=== PATIENT | female | born 1955 | race Caucasian/White ===

== ENCOUNTER 2024-07-14 13:52 | Inpatient (IN) | payer MEDICARE, OTHER ==
[~2024-07-14] VITALS: Ht 170.2 cm; Wt 97.5 kg
[2024-07-14 15:33] LABS: BASOPHILS % (AUTO) 0.3 % (0.0-2.0); EOSINOPHILS # (AUTO) 0.1 K/uL (0.0-0.7); EOSINOPHILS % (AUTO) 2.6 % (0.0-6.0); HEMATOCRIT 32 % (33-45); HEMOGLOBIN 10.5 g/dL (11.5-14.8); LYMPHOCYTES # (AUTO) 0.6 K/uL (0.8-4.8); LYMPHOCYTES % (AUTO) 10.6 % (20.0-44.0); MEAN CORPUSCULAR HEMOGLOBIN 31 PG (26.0-33.0); MEAN CORPUSCULAR HGB CONC 33 g/dl (31.0-36.0); MEAN CORPUSCULAR VOLUME 94 fL (82-100); MONOCYTES # (AUTO) 0.2 K/uL (0.1-1.30); MONOCYTES % (AUTO) 4.6 % (2.0-12.0); NEUTROPHILS # (AUTO) 4.2 K/uL (1.8-8.9); NEUTROPHILS % (AUTO) 81.9 % (43.0-81.0); PLATELET COUNT (AUTO) 236 K/uL (150-450); RED BLOOD CELL COUNT(AUTO) 3.38 MIL/uL (4.0-5.2); RED CELL DISTRIBUTION WIDTH 13.2 % (11.5-15.0); WHITE BLOOD COUNT (AUTO) 5.2 K/uL (4.3-11.0)
[2024-07-14 15:48] LABS: CALCIUM, SERUM 8.7 mg/dL (8.5-10.1); CREATININE 2.9 mg/dL (0.6-1.3); POTASSIUM 4.5 mmol/L (3.5-5.1)
[2024-07-14 15:51] LABS: BILIRUBIN,URINE Negative (NEGATIVE); BLOOD, URINE Moderate Ery/uL (NEGATIVE); COLOR,URINE YELLOW (YELLOW); KETONES,URINE Negative (NEGATIVE); LEUKOCYTE ESTERASE ,URINE Large (NEGATIVE); PROTEIN,URINE 30 mg/dl (NEGATIVE); UGLUCOSE Negative (NEGATIVE); UROBILINOGEN,URINE 0.2 EU/dL (0.2)
[2024-07-14 15:54] LABS: APPEARANCE,URINE HAZY (CLEAR); NITRITE, URINE NEGATIVE (NEGATIVE)
[2024-07-14 15:55] LABS: ADD URINE CULTURE YES; BACTERIA,URINE 1+ /HPF (None Seen); WBC,URINE 21-50 /HPF (0-3)
[2024-07-14] MEDS ORDERED: ACET-73 PO (15:57)
[2024-07-14] MEDS ORDERED: FURO40TA5 PO (15:57)
[2024-07-14] MEDS ORDERED: HYDR-3980 PO (15:57)
[2024-07-14] MEDS ORDERED: MAGN400T52 PO (15:57)
[2024-07-14] MEDS ORDERED: TRAZ-252 PO (15:57)
[2024-07-14] MEDS ORDERED: FERR325T24 PO (15:57)
[2024-07-14] MEDS ORDERED: OLME20TA23 PO (15:57)
[2024-07-14] MEDS ORDERED: AZEL137S7 BNOSTRILS (15:57)
[2024-07-14] MEDS ORDERED: BUSP5TAB3 PO (15:57)
[2024-07-14] MEDS ORDERED: HYDROCODONE/APAP 10/325MG TABLET PO PRN (19:00)
[2024-07-14] MEDS ORDERED: ONDANSETRON HCL/PF 4 MG/2 ML VIAL IVP PRN (19:00)
[2024-07-14] MEDS ORDERED: Z GUARD REMEDY 4 OZ OINT TP PRN (19:00)
[2024-07-14] MEDS: ENOXAPARIN SODIUM 40 MG/0.4 ML DISP.SYRIN SQ SCH (19:55)
[2024-07-14 20:00] VITALS: BP 110/57; TEMP 97.7; O2SAT 100
[2024-07-14] MEDS: IV NS 0.9% 1,000 ML IV PRN (20:01)
[2024-07-14] MEDS: MEROPENEM 500 MG in IV NS 0.9% 50 ML IV SCH (20:43)
[2024-07-14] MEDS: MAGNESIUM OXIDE 400 MG TABLET PO SCH (21:09)
[2024-07-14] MEDS: busPIRone 5 MG TABLET PO SCH (21:09)
[2024-07-14] MEDS: TRAZODONE 50 MG TABLET PO SCH (21:09)
[2024-07-15 04:00] VITALS: BP 97/50; TEMP 97.9; O2SAT 98
[2024-07-15] MEDS: PANTOPRAZOLE 40 MG TABLET.DR PO SCH (06:32)
[2024-07-15 06:59] LABS: BASOPHILS % (AUTO) 0.3 % (0.0-2.0); EOSINOPHILS # (AUTO) 0.2 K/uL (0.0-0.7); EOSINOPHILS % (AUTO) 3.7 % (0.0-6.0); HEMATOCRIT 31 % (33-45); HEMOGLOBIN 10.4 g/dL (11.5-14.8); LYMPHOCYTES # (AUTO) 0.7 K/uL (0.8-4.8); LYMPHOCYTES % (AUTO) 17.1 % (20.0-44.0); MEAN CORPUSCULAR HEMOGLOBIN 31 PG (26.0-33.0); MEAN CORPUSCULAR HGB CONC 33 g/dl (31.0-36.0); MEAN CORPUSCULAR VOLUME 92 fL (82-100); MONOCYTES # (AUTO) 0.3 K/uL (0.1-1.30); MONOCYTES % (AUTO) 6.1 % (2.0-12.0); NEUTROPHILS % (AUTO) 72.8 % (43.0-81.0); PLATELET COUNT (AUTO) 246 K/uL (150-450); RED BLOOD CELL COUNT(AUTO) 3.39 MIL/uL (4.0-5.2); RED CELL DISTRIBUTION WIDTH 13.4 % (11.5-15.0); WHITE BLOOD COUNT (AUTO) 4.1 K/uL (4.3-11.0)
[2024-07-15 07:10] LABS: CALCIUM, SERUM 9.1 mg/dL (8.5-10.1); CREATININE 2.6 mg/dL (0.6-1.3)
[2024-07-15 08:00] VITALS: BP 99/51; TEMP 98.1; O2SAT 95
[2024-07-15] MEDS: FERROUS SULFATE (325 MG) 325 MG/TAB TABLET PO SCH (08:19)
[2024-07-15] MEDS ORDERED: LOSARTAN POTASSIUM 50 MG TABLET PO SCH (09:00)
[2024-07-15 12:00] VITALS: BP 101/57; TEMP 98.1; O2SAT 96
[2024-07-15 16:00] VITALS: BP 112/48; TEMP 97.7; O2SAT 96
[2024-07-15 20:00] VITALS: BP 101/56; TEMP 97.7; O2SAT 97
[2024-07-16] MEDS: MAGNESIUM HYDROXIDE 30 ML UDC PO PRN (01:52)
[2024-07-16 04:00] VITALS: BP 96/59; TEMP 98.7; O2SAT 96
[2024-07-16 06:50] LABS: BASOPHILS % (AUTO) 0.2 % (0.0-2.0); EOSINOPHILS # (AUTO) 0.2 K/uL (0.0-0.7); EOSINOPHILS % (AUTO) 3.9 % (0.0-6.0); HEMATOCRIT 32 % (33-45); HEMOGLOBIN 10.7 g/dL (11.5-14.8); LYMPHOCYTES # (AUTO) 0.5 K/uL (0.8-4.8); LYMPHOCYTES % (AUTO) 9.7 % (20.0-44.0); MEAN CORPUSCULAR HEMOGLOBIN 31 PG (26.0-33.0); MEAN CORPUSCULAR HGB CONC 34 g/dl (31.0-36.0); MEAN CORPUSCULAR VOLUME 92 fL (82-100); MONOCYTES # (AUTO) 0.3 K/uL (0.1-1.30); MONOCYTES % (AUTO) 5.6 % (2.0-12.0); NEUTROPHILS # (AUTO) 3.8 K/uL (1.8-8.9); NEUTROPHILS % (AUTO) 80.6 % (43.0-81.0); PLATELET COUNT (AUTO) 252 K/uL (150-450); RED BLOOD CELL COUNT(AUTO) 3.46 MIL/uL (4.0-5.2); RED CELL DISTRIBUTION WIDTH 13.3 % (11.5-15.0); WHITE BLOOD COUNT (AUTO) 4.7 K/uL (4.3-11.0)
[2024-07-16 07:01] LABS: ALBUMIN 2.7 g/dL (3.4-5.0); BILIRUBIN,TOTAL 0.2 mg/dL (0.2-1.0); CALCIUM, SERUM 9.4 mg/dL (8.5-10.1); CREATININE 2.2 mg/dL (0.6-1.3); MAGNESIUM 3.2 mg/dL (1.8-2.4); PHOSPHORUS 3.9 mg/dL (2.5-4.9); POTASSIUM 4.3 mmol/L (3.5-5.1); TOTAL PROTEIN, SERUM 6.6 g/dL (6.4-8.2)
[2024-07-16 12:00] VITALS: BP 110/48; TEMP 98; O2SAT 96
[2024-07-16] MEDS ORDERED: METH1TAB69 PO (12:33)
[2024-07-16] MEDS ORDERED: FURO-144 PO (12:33)
[2024-07-16] MEDS ORDERED: SULF1TAB48 PO (12:33)
[2024-07-16] MEDS: ACETAMINOPHEN 325 MG TABLET PO PRN (15:42)
[2024-07-16 16:41] VITALS: TEMP 98
[2024-07-17 08:07] LABS: PTH, INTACT 27 pg/mL (15-65)
[2024-07-17 13:12] LABS: *SPE ALBUMIN 2.9 g/dL (2.9-4.4); *SPE ALPHA-1-GLOBULIN 0.3 g/dL (0.0-0.4); *SPE ALPHA-2-GLOBULIN 0.8 g/dL (0.4-1.0); *SPE BETA GLOBULIN 0.8 g/dL (0.7-1.3); *SPE GLOBULIN, TOTAL 2.9 g/dL (2.2-3.9); *SPE M-SPIKE Not Observed g/dL (Not Observed); *SPE PROTEIN TOTAL 5.8 g/dL (6.0-8.5); *SPEGAMMA GLOBULIN 0.9 g/dL (0.4-1.8)
== END 2024-07-16 19:00 | disposition home health service (06) | DRG 683 ==
LOC: ER 13:55 → MEDSG1 18:15
PROVIDERS: ADMIT Nurse Practitioner Acute Care; ATTEND Nurse Practitioner Acute Care
DX: N17.9 Acute kidney failure, unspecified (principal); I13.0 Hypertensive heart and chronic kidney disease with heart failure and stage 1 through stage 4 chronic kidney disease, or unspecified chronic kidney disease; I50.32 Chronic diastolic (congestive) heart failure; N39.0 Urinary tract infection, site not specified; Z87.440 Personal history of urinary (tract) infections; N18.9 Chronic kidney disease, unspecified; E83.41 Hypermagnesemia; F32.A Depression, unspecified; D63.8 Anemia in other chronic diseases classified elsewhere; N26.1 Atrophy of kidney (terminal); M89.8X9 Other specified disorders of bone, unspecified site; E83.9 Disorder of mineral metabolism, unspecified; R53.1 Weakness; F41.9 Anxiety disorder, unspecified; R23.4 Changes in skin texture; S81.811A Laceration without foreign body, right lower leg, initial encounter; X58.XXXA Exposure to other specified factors, initial encounter; Y93.9 Activity, unspecified; Y92.89 Other specified places as the place of occurrence of the external cause
CPT/HCPCS: 36415; 76770-TC; 80048-TC; 80053-TC; 80061-TC; 81001; 82550-TC; 83735-TC; 83970; 84100-TC; 84155; 84165; 85025-TC; 93307-TC; A4223; G0378; J1650; J2185; J7030

== ENCOUNTER 2024-08-17 17:05 | Emergency (ER) | payer MEDICARE, OTHER ==
[~2024-08-17] VITALS: Ht 170.2 cm; Wt 95.7 kg
[~2024-08-17 17:05] MED LIST: ACET-73 PO; AZEL137S7 BNOSTRILS; BUSP5TAB3 PO; FERR325T24 PO; FURO-144 PO; HYDR-3980 PO; MAGN400T52 PO; METH1TAB69 PO; OLME20TA23 PO; SULF1TAB48 PO; TRAZ-252 PO
[2024-08-17] MEDS ORDERED: ACET325T53 PO (19:08)
[2024-08-17] MEDS ORDERED: OMEG1CAP40 PO (19:08)
[2024-08-17] MEDS ORDERED: FURO40TA5 PO (19:08)
[2024-08-17] MEDS ORDERED: VALA500T40 PO (19:08)
[2024-08-17] MEDS ORDERED: NALO4SPR NS (19:08)
[2024-08-17] MEDS ORDERED: MAGN400O6 PO (19:08)
[2024-08-17] MEDS ORDERED: METH1TAB69 PO (19:08)
[2024-08-17] MEDS ORDERED: ASCO500T10 PO (19:08)
[2024-08-17 19:56] LABS: APPEARANCE,URINE CLEAR (CLEAR); BILIRUBIN,URINE NEGATIVE (NEGATIVE); BLOOD, URINE 2+ Ery/uL (NEGATIVE); COLOR,URINE YELLOW (YELLOW); KETONES,URINE NEGATIVE (NEGATIVE); LEUKOCYTE ESTERASE ,URINE 3+ (NEGATIVE); NITRITE, URINE NEGATIVE (NEGATIVE); PH,URINE 6.5 (5.0-8.0); PROTEIN,URINE 2+ mg/dl (NEGATIVE); UGLUCOSE NEGATIVE (NEGATIVE); UROBILINOGEN,URINE 0.2 EU/dL (0.2)
[2024-08-17] MEDS ORDERED: CEPH-570 PO (20:13)
[2024-08-17 20:14] LABS: ADD URINE CULTURE YES; BACTERIA,URINE 1+ /HPF (None Seen); URINE AMORPHOUS PHOSPHATES Few /HPF (None Seen); WBC,URINE 21-50 /HPF (0-3)
[2024-08-17] MEDS ORDERED: HYDROCODONE/APAP 5/325MG TABLET ONE (20:40)
[2024-08-17] MEDS ORDERED: CEPHALEXIN MONOHYDRATE 500 MG CAPSULE PO ONE (20:41)
[2024-08-17] MEDS: CEPHALEXIN MONOHYDRATE 500 MG CAPSULE PO ONE (20:44)
[2024-08-17] MEDS: HYDROCODONE/APAP 5/325MG TABLET PO ONE (20:44)
[2024-08-17 22:32] VITALS: BP 124/82; TEMP 98.3; O2SAT 99
== END 2024-08-17 22:33 | disposition home or self-care (01) ==
LOC: ER 17:10
DX: N39.0 Urinary tract infection, site not specified (principal); I10 Essential (primary) hypertension; F41.9 Anxiety disorder, unspecified; Z79.624 Long term (current) use of inhibitors of nucleotide synthesis; Z79.899 Other long term (current) drug therapy; Z88.1 Allergy status to other antibiotic agents
CPT/HCPCS: 81001; 87086-TC; 87186-TC